=== PATIENT | male | born 1945 | race Caucasian/White ===

== ENCOUNTER → 2016-12-18 | Outpatient (CLI) | payer MEDICARE ==
[~2016-12-18] MED LIST: ASPI-504 PO; CHOL10002 PO; CLPD75T PO; EZET1TAB7 PO; GFN600TCR PO; HYDR-2997 PO; LSNP20T PO; METO-270 PO; RANI150T11 PO; UBID1CAP51 PO
--- NOTE | 2016-12-18 14:24 | Diagnostic Imaging Report ---
PROCEDURE: CT cervical spine without contrast. TECHNIQUE: Multiple contiguous axial images were obtained through the cervical spine without the use of intravenous contrast. Sagittal and coronal reformations were then performed. INDICATION: Postoperative cervical fusion and laminectomy. COMPARISON: CT of the neck done 08/06/2009. FINDINGS: Since the prior examination, there has been laminectomy from C2-C3 to C7-T1. A posterior fusion apparatus is present with facet screws and interlocking rods. The metal apparatus is intact. The metal artifact limits assessment. Without intrathecal contrast, it is difficult to assess for nonosseous abnormalities that could be producing thecal sac compression. There is a lucency surrounding the bilateral facet screws involving C7 inferior articulating facets. Osteopenia is present. Small areas of lucency are visible in C6 and C7 vertebrae that are likely degenerative. C2-C3: Slight anterolisthesis of C2 on C3 vertebra is present, similar to the prior exam. Mild facet arthropathy is present bilaterally. Mild osseous left foraminal stenosis is present. C3-C4: Intervertebral disc shows some ossification within it which is more lucent than the remainder of the cancellous bone of the spine. There is minimal posterior bony fringing with minimal central stenosis. No significant foraminal stenosis. Facet joints are partially fused. C4-C5: Intervertebral disc space narrowing is present. Posterior osteophyte formation is present with spurring into the inferior aspects of both exit foramina with moderate right and mild left osseous foraminal stenosis. Facet joints are partially fused. C5-C6: Severe narrowing of the intervertebral disc. Moderate spurring is present into the right exit foramen with slight spurring into the left exit foramen. No significant central stenosis. Partial facet joint fusion is present with greater osseous fusion on the right. C6-C7: Severe narrowing of the disc with moderate spurring into the right exit foramen with [id number] spurring into the left exit foramen and moderate bilateral foraminal stenosis. No facet joint fusion. C7-T1: Degenerative disc changes with mild spurring into the foramina. No facet joint fusion. Left thyroid lobe is absent. Scarring changes are noted in the lung apices. IMPRESSION: 1. Interval laminectomy C2-C3 to C7-T1. 2. Lucency is present surrounding the vertebral screws involving C7 inferior articulating facets suggesting loosening. 3. Levels of spurring into the exit foramina as described. Dictated by: Dictated on workstation # [id number]
== END ==
LOC: RAD 12:46
PROVIDERS: ATTEND Neurological Surgery
DX: M47.812 Spondylosis without myelopathy or radiculopathy, cervical region (principal)
CPT/HCPCS: 72125